=== PATIENT | male | born 1985 | race Hispanic/Latino ===

== ENCOUNTER 2021-08-10 18:59 | Emergency (ER) | payer BC ==
[~2021-08-10] VITALS: Ht 170.2 cm; Wt 93.0 kg
== END 2021-08-10 20:25 | disposition home or self-care (01) ==
LOC: FSED 19:15
DX: R20.0 Anesthesia of skin (principal); G62.9 Polyneuropathy, unspecified; G93.5 Compression of brain
CPT/HCPCS: 70450; 99283